=== PATIENT | male | born 1970 | race Caucasian/White ===

== ENCOUNTER 2017-05-15 15:52 | Outpatient (CLI) | payer BC ==
--- NOTE | 2017-05-15 18:23 | ULT ---
LEFT LOWER EXTREMITY VENOUS DOPPLER WITH SPECTRAL ANALYSIS AND COLOR FLOW EVALUATION: 05/15/17 HISTORY: Pain at level of the left ankle and calf. FINDINGS: Saavedra scale, color flow, doppler evaluation, with spectral analysis of the left lower extremity venous structures is performed with 2D imaging. The left lower extremity common femoral, superficial femora l, popliteal, posterior tibial, and most proximal visualized greater saphenous and profunda femoral v eins are imaged. There is normal lumen compressibility, flow, and augmentation of the visualized deep venous structure s left lower extremity. There is a superficial tubular structure with echogenic material seen posterior to the left ankle and calf which demonstrates no flow and there is no lumen compressibility. Findings are most suggestive of occlusive thrombus in a superficial vein at this level. IMPRESSION: 1. Occlusive thrombus in a superficial vein at the level of the left ankle and calf. 2. No evidence of a DVT in the visualized left lower extremity venous structures. POS: [facility]
== END 2017-05-15 15:53 | disposition home or self-care (01) ==
LOC: ULT 15:52
PROVIDERS: ATTEND Family Medicine
DX: M79.662 Pain in left lower leg (principal); I82.812 Embolism and thrombosis of superficial veins of left lower extremity

== ENCOUNTER 2017-12-31 12:36 | Outpatient (CLI) | payer BC ==
--- NOTE | 2017-12-31 15:22 | MRI ---
MRI OF RIGHT SHOULDER PERFORMED WITHOUT CONTRAST ENHANCEMENT: History: Right shoulder pain getting worse the last few years. FINDINGS: Mild AC joint hypertrophic changes are present. There is a laterally down sloping acromion. There is a low grade undersurface tear of the supraspinatus tendon. There may be some subtle delamina tion associated with this. There is a tiny amount of fluid density seen at the musculotendinous junct ion of the infraspinatus tendon. Subscapularis muscle and tendon are intact. The biceps tendon is normal in position within the bicipi mari groove. Intraarticular portion of the biceps tendon appears mildly tendinopathic. I do not appreciate any tea r of the tendon. No definite signs of any labral tear. IMPRESSION: 1. Lower grade under surface tear of the supraspinatus tendon tear involving less than 30% of the und ersurface, however, there does appear to be suggestion of possible delaminating component as there i s some subtle fluid density which extends to the muscotendinous junction of the infraspinatus tendon. 2. Mild tendinopathy changes of the intraarticular portion of the biceps tendon. POS: [facility]OS
== END 2017-12-31 12:37 | disposition home or self-care (01) ==
LOC: TBSIIMAG 12:36
PROVIDERS: ATTEND Orthopaedic Surgery
DX: M75.101 Unspecified rotator cuff tear or rupture of right shoulder, not specified as traumatic (principal)

== ENCOUNTER 2018-04-12 05:47 | Outpatient (CLI) | payer BC ==
[2018-04-12 06:17] LABS: ALT (SGPT) 50 U/L (8-55); AST (SGOT) 29 U/L (5-34); Albumin 4.3 g/dL (3.5-5.0); Alkaline Phosphatase 65 U/L (40-150); Anion Gap 12 mmol/L (10-20); BUN (Urea Nitrogen) 18 mg/dL (8.9-20.6); Bilirubin, Total 0.6 mg/dL (0.2-1.2); Calc. Creatinine Clearance 0 mL/min (70-130); Calcium 9.7 mg/dL (7.8-10.44); Carbon Dioxide 27 mmol/L (22-29); Cardiac Risk 3.2 (Less than 4.5); Chloride 104 mmol/L (98-107); Cholesterol 144 mg/dl (< 200 Desired); Estimated GFR-MDRD 66; Globulin 2.8 g/dL (2.4-3.5); Glucose 187 mg/dL (70-105); HDL Cholesterol 45 mg/dL (>60 Neg Risk); LDL Cholesterol, Calculated 88 mg/dL; Potassium 4.3 mmol/L (3.5-5.1); Protein, Total 7.1 g/dL (6.0-8.3); Sodium 139 mmol/L (136-145); Triglycerides 53 mg/dL (Less than 150)
[2018-04-12 10:16] LABS: Hemoglobin A1c 9.1 % (4.0-6.0)
== END 2018-04-12 05:48 | disposition home or self-care (01) ==
LOC: SCSLAB 05:47
PROVIDERS: ATTEND Family Medicine
DX: E11.9 Type 2 diabetes mellitus without complications (principal)
CPT/HCPCS: 36415; 80053; 80061; 83036

== ENCOUNTER 2022-03-29 16:49 | Outpatient (CLI) | payer OTHER, BC | END 2022-03-29 16:50 | disposition home or self-care (01) | LOC: SCSRAD 16:49 | PROVIDERS: ATTEND Family Medicine | DX: R10.9 Unspecified abdominal pain (principal); S22.41XD Multiple fractures of ribs, right side, subsequent encounter for fracture with routine healing | CPT/HCPCS: 71046 ==

== ENCOUNTER 2022-04-12 14:24 | Outpatient (CLI) | payer OTHER, BC | END 2022-04-12 14:25 | disposition home or self-care (01) | LOC: SCSMRI 14:24 | PROVIDERS: ATTEND Orthopaedic Surgery | DX: S46.011A Strain of muscle(s) and tendon(s) of the rotator cuff of right shoulder, initial encounter (principal); S46.811A Strain of other muscles, fascia and tendons at shoulder and upper arm level, right arm, initial encounter; M19.011 Primary osteoarthritis, right shoulder; R60.0 Localized edema ==

== ENCOUNTER 2022-04-21 15:10 | Outpatient (CLI) | payer OTHER, BC ==
[2022-04-21 16:33] LABS: #Eosinphils 0.1 10x3/uL (0.0-0.5); #Monocytes 0.4 10x3/uL (0.0-1.1); #Neutrophils 3.4 10x3/uL (1.5-8.4); %Basophils 0.4 % (0.0-2.0); %Eosinophils 0.9 % (0.0-6.0); %Lymphocytes 27.4 % (18.0-47.0); %Monocytes 7.1 % (0.0-10.0); Hemoglobin 14.6 g/dL (13.5-17.5); Mean Corpuscular HGB CONC 34.2 g/dL (32.0-36.0); Mean Corpuscular Hemoglobin 31.6 pg (27.0-33.0); Mean Corpuscular Volume 92.4 fl (81.2-95.1); Mean Platelet Volume 10.4 fl (7.4-10.4); Platelet Count 154 10x3/uL (150-450); RBC Distribution Width 12.2 % (11.5-14.5); Red Blood Cell (RBC) Count 4.62 10x6/uL (4.32-5.72); White Blood Cell (WBC) Count 5.4 10x3/uL (3.5-10.5)
[2022-04-21 16:48] LABS: Anion Gap 13 mmol/L (10-20); BUN (Urea Nitrogen) 17 mg/dL (8.4-25.7); Calc. Creatinine Clearance 0 mL/min (70-130); Calcium 9.2 mg/dL (7.8-10.44); Carbon Dioxide 25 mmol/L (22-29); Chloride 105 mmol/L (98-107); Estimated GFR 98; Glucose 276 mg/dL (70-105); Potassium 4.3 mmol/L (3.5-5.1); Sodium 139 mmol/L (136-145)
== END 2022-04-21 15:11 | disposition home or self-care (01) ==
LOC: LABBT 15:10
PROVIDERS: ATTEND Orthopaedic Surgery
DX: Z01.818 Encounter for other preprocedural examination (principal); S43.101A Unspecified dislocation of right acromioclavicular joint, initial encounter
CPT/HCPCS: 71046; 80048; 85025; 93005; 93010

== ENCOUNTER 2022-04-26 07:17 | Day surgery (SDC) | payer OTHER, BC ==
[2022-04-25 13:11] VITALS: BMI 26.8
[2022-04-26] MEDS ORDERED: Fentanyl 100 MCG/2 ML VIAL ONE (08:42)
[2022-04-26] MEDS ORDERED: Midazolam HCl 2 mg/2 ml Vial ONE (08:42)
[2022-04-26] MEDS ORDERED: Bupivacaine PF 0.5% 30 ML VIAL ONE (08:44)
[2022-04-26] MEDS ORDERED: traMADol HCl 50 MG TAB PO PRN ×2 (08:45)
[2022-04-26] MEDS ORDERED: Promethazine HCl 25 MG/ML VIAL IM PRN (08:45)
[2022-04-26] MEDS ORDERED: Zolpidem Tartrate 5 MG TAB PO PRN (08:45)
[2022-04-26] MEDS ORDERED: Ropivacaine 0.2% 550 ML 550 ML NERVE BLCK SCH (08:45)
[2022-04-26] MEDS ORDERED: Ondansetron PF 4 MG/2 ML Vial IVP PRN (08:45)
[2022-04-26] MEDS ORDERED: HYDROcodone/Acetaminophen 10/325 mg Tablet PO PRN ×2 (08:45)
[2022-04-26] MEDS ORDERED: Bupivacaine/Epinephrine 0.25% 30 ML VIAL ONE (09:30)
[2022-04-26] MEDS ORDERED: fentaNYL PF 100 MCG/2 ML SYRINGE ONE (09:41)
[2022-04-26] MEDS ORDERED: Sodium Chloride 0.9% 100 ML ONE (09:43)
[2022-04-26] MEDS ORDERED: CEFAZOLIN 2 GM VIAL ONE (09:43)
[2022-04-26] MEDS ORDERED: Ketorolac Tromethamine 30 MG/ML VIAL ONE (09:58)
[2022-04-26] MEDS ORDERED: Ondansetron PF 4 MG/2 ML Vial ONE (09:58)
[2022-04-26] MEDS ORDERED: Lidocaine 1% PF 5 ML VIAL ONE (09:58)
[2022-04-26] MEDS ORDERED: PROPOFOL 200 MG/20 ML VIAL ONE (09:58)
[2022-04-26] MEDS ORDERED: ePHEDrine 50 MG/ML VIAL ONE (09:58)
[2022-04-26] MEDS ORDERED: Rocuronium Bromide 10 MG/ML (10ML VIAL) ONE (09:58)
[2022-04-26] MEDS ORDERED: Ketorolac Tromethamine 30 MG/ML VIAL IVP SCH (12:00)
[2022-04-26] MEDS ORDERED: HYDROcodone/Acetaminophen 5/325 mg Tablet ONE (13:09)
== END 2022-04-26 14:07 | disposition home or self-care (01) ==
LOC: SDC 07:17
PROVIDERS: ATTEND Orthopaedic Surgery
DX: S43.491A Other sprain of right shoulder joint, initial encounter (principal); S46.211A Strain of muscle, fascia and tendon of other parts of biceps, right arm, initial encounter; M25.311 Other instability, right shoulder; M75.51 Bursitis of right shoulder; E78.5 Hyperlipidemia, unspecified; E11.9 Type 2 diabetes mellitus without complications; Z79.84 Long term (current) use of oral hypoglycemic drugs; Z79.899 Other long term (current) drug therapy; Z88.8 Allergy status to other drugs, medicaments and biological substances; W55.22XA Struck by cow, initial encounter
CPT/HCPCS: 36416; A4306; C1713; J1885; J2250; J2405; J2704; J2795; J3010; J3490; S0020

== ENCOUNTER 2022-05-24 08:57 | Outpatient (CLI) | payer OTHER, BC | END 2022-05-24 08:58 | disposition home or self-care (01) | LOC: SCSRAD 08:57 | PROVIDERS: ATTEND Family Medicine | DX: S22.41XS Multiple fractures of ribs, right side, sequela (principal) ==

== ENCOUNTER 2022-06-28 11:24 | Outpatient (CLI) | payer OTHER, BC | END 2022-06-28 11:25 | disposition home or self-care (01) | LOC: BICCT 11:24 | PROVIDERS: ATTEND Orthopaedic Surgery | DX: S22.41XD Multiple fractures of ribs, right side, subsequent encounter for fracture with routine healing (principal) | CPT/HCPCS: 71250 ==